=== PATIENT | male | born 1980 | race Hispanic/Latino ===

== ENCOUNTER 2021-01-26 00:54 | Emergency (ER) | payer SELFPAY ==
[2021-01-26] MEDS ORDERED: SODIUM CHLORIDE 0.9% 1000ML 2,000 ML IV ONE (01:44)
[2021-01-26] MEDS ORDERED: DiphenhydrAMINE HCL 50 MG/ML VIAL ONE (01:46)
[2021-01-26] MEDS ORDERED: ONDANSETRON HCL 4 MG/2 ML VIAL ONE (01:46)
[2021-01-26 01:48] LABS: BASOPHILS % (AUTO) 0.2 % (0.0-5.0); EOSINOPHILS % (AUTO) 0.2 % (0.0-8.0); HEMATOCRIT 43.6 % (42-54); LYMPHOCYTES % (AUTO) 12.8 % (21.0-51.0); MEAN CORPUSCULAR HEMOGLOBIN 30.9 pg (27.0-33.0); MEAN CORPUSCULAR HGB CONC 33.9 g/dL (32.0-36.0); MONOCYTES % (AUTO) 7.1 % (3.0-13.0); NEUTROPHILS % (AUTO) 79.2 % (40.0-77.0); PLATELET COUNT (AUTO) 196 K/uL (130-400); RED BLOOD CELL COUNT(AUTO) 4.79 MIL/uL (4.50-6.20); RED CELL DISTRIBUTION WIDTH 12.7 % (11.0-15.5); WHITE BLOOD COUNT (AUTO) 13.3 K/uL (4.8-10.8)
[2021-01-26 02:01] LABS: CREATININE 1.2 mg/dL (0.5-1.5); POTASSIUM 3.7 mmol/L (3.5-5.1)
[2021-01-26 02:06] LABS: ALBUMIN 3.1 g/dL (3.5-5.0); BILIRUBIN,TOTAL 0.4 mg/dL (0.2-1.0); TOTAL PROTEIN, SERUM 6.9 g/dL (6.0-8.3)
[2021-01-26] MEDS ORDERED: ORPHENADRINE CITRATE 30 MG/ML ML ONE (03:15)
[2021-01-26] MEDS ORDERED: KETOROLAC TROMETHAMINE 30MG/ML ONE (03:16)
== END 2021-01-26 03:54 | disposition home or self-care (01) ==
LOC: EDH 00:54
DX: E86.0 Dehydration (principal); F43.0 Acute stress reaction; R07.89 Other chest pain; E11.65 Type 2 diabetes mellitus with hyperglycemia
CPT/HCPCS: 36415; 71045; 80053; 83690; 84484; 85025; 93005; 96361; 96374; 96375; 99285; J1200; J1885; J2360; J2405; J7030

== ENCOUNTER 2022-01-23 09:08 | Emergency (ER) | payer OTHER ==
[~2022-01-23] VITALS: Ht 188 cm; Wt 158.8 kg
[2022-01-23 09:33] LABS: BASOPHILS % (AUTO) 0.5 % (0.0-5.0); EOSINOPHILS % (AUTO) 0.5 % (0.0-8.0); HEMATOCRIT 48.9 % (42-54); LYMPHOCYTES % (AUTO) 22.6 % (21.0-51.0); MEAN CORPUSCULAR HEMOGLOBIN 31.1 pg (27.0-33.0); MEAN CORPUSCULAR HGB CONC 34.2 g/dL (32.0-36.0); MEAN CORPUSCULAR VOLUME 91.1 fL (79-99); NEUTROPHILS % (AUTO) 68.6 % (40.0-77.0); PLATELET COUNT (AUTO) 259 K/uL (130-400); RED BLOOD CELL COUNT(AUTO) 5.37 MIL/uL (4.50-6.20); RED CELL DISTRIBUTION WIDTH 12.3 % (11.0-15.5)
[2022-01-23 09:42] LABS: CREATININE 1.1 mg/dL (0.5-1.5); POTASSIUM 4.3 mmol/L (3.5-5.1)
[2022-01-23 09:46] LABS: ALBUMIN 3.4 g/dL (3.5-5.0); BILIRUBIN,TOTAL 0.6 mg/dL (0.2-1.0); TOTAL PROTEIN, SERUM 7.7 g/dL (6.0-8.3)
[2022-01-23] MEDS ORDERED: CLINDAMYCIN IVPB 600MG/50ML 50 ML IV STA (09:52)
[2022-01-23] MEDS ORDERED: LIDOCAINE HCL 1% 20 ML VIAL INJ STA (09:52)
[2022-01-23] MEDS ORDERED: LIDOCAINE PF 100MG/5ML (2%) SYRINGE 5ML ONE (09:56)
[2022-01-23] MEDS ORDERED: KETOROLAC 30MG VIAL (30MG/ML) ONE (10:09)
[2022-01-23] MEDS ORDERED: NAPR-1196 PO (10:23)
[2022-01-23] MEDS ORDERED: CLIN-141 PO (10:23)
[2022-01-23] MEDS ORDERED: TETANUS/DIPHTHERIA TOXOID [ADULT] 0.5 ML VIAL IM ONE (10:30)
[2022-01-23 10:56] VITALS: BP 128/66
[2022-01-23 10:56] LABS: APPEARANCE,URINE Clear (CLEAR); BILIRUBIN,URINE Negative (NEGATIVE); COLOR,URINE Yellow (YELLOW); GLUCOSE, URINE (UA) >=1000 mg/dL (NEGATIVE); KETONES,URINE Negative (NEGATIVE); LEUKOCYTE ESTERASE ,URINE Negative (NEGATIVE); NITRATE,URINE Negative (NEGATIVE); OCCULT BLOOD,URINE Negative (NEGATIVE); PROTEIN,URINE Negative (NEGATIVE); UROBILINOGEN,URINE 0.2 mg/dL (0.2-1.0)
[2022-01-23 11:11] LABS: BACTERIA,URINE Few /HPF (None Seen); RBC,URINE 0-1 /HPF (0-1); WBC,URINE 0-1 /HPF (0-1)
[2022-01-23 11:12] LABS: YEAST,URINE BUDDING Moderate /HPF (None Seen)
== END 2022-01-23 11:36 | disposition home or self-care (01) ==
LOC: EDH 09:08
DX: L02.416 Cutaneous abscess of left lower limb (principal); L03.116 Cellulitis of left lower limb; E11.9 Type 2 diabetes mellitus without complications; E78.00 Pure hypercholesterolemia, unspecified; I10 Essential (primary) hypertension; Z90.89 Acquired absence of other organs; Z98.890 Other specified postprocedural states
CPT/HCPCS: 10060; 36415; 80053; 81001; 85025; 87070; 87076; 90471; 90714; 96365; 96375; 99284; J1885; J2001; J3490